=== PATIENT | female | born 1995 | race Caucasian/White ===

== ENCOUNTER 2017-02-10 17:02 | Emergency (ER) | payer SELFPAY ==
[~2017-02-10] VITALS: Ht 167.6 cm; Wt 81.6 kg
[~2017-02-10 17:02] MED LIST: CIPR500T94 PO
[2017-02-10 17:31] LABS: BILIRUBIN,URINE NEGATIVE (NEG); GLUCOSE,URINE NEGATIVE (NEG); NITRITE,URINE NEGATIVE (NEG); PROTEIN,URINE NEGATIVE (NEG-TRACE)
[2017-02-10 17:41] LABS: BACTERIA,URINE FEW /HPF (0-FEW); SQUAMOUS EPITHELIAL CELL,UR MANY /LPF
[2017-02-10 18:00] LABS: BASO # 0.1 x10^3/uL (0.0-0.2); BASO % 1 % (0-3); EOS % 1 % (0-3); HEMATOCRIT 40.7 % (36.0-47.0); HEMOGLOBIN 13.8 g/dL (12.0-15.5); LYMPH # 2.4 x10^3/uL (1.0-4.8); LYMPH % 23 % (24-48); MEAN CORPUSCULAR HEMOGLOBIN 32 pg (25-35); MEAN CORPUSCULAR HGB CONC 34 g/dL (31-37); MEAN CORPUSCULAR VOLUME 93 fL (79-100); MONO % 8 % (0-9); NEUT % 67 % (31-73); PLATELET COUNT 248 x10^3/uL (140-400); RED BLOOD COUNT 4.37 x10^6/uL (3.50-5.40); RED CELL DISTRIBUTION WIDTH 12.8 % (11.5-14.5); WHITE BLOOD COUNT 10.2 x10^3/uL (4.0-11.0)
[2017-02-10 18:09] LABS: CALCIUM 8.7 mg/dL (8.5-10.1); CREATININE 0.7 mg/dL (0.6-1.0); GFR 103.7; POTASSIUM 3.9 mmol/L (3.5-5.1)
[2017-02-10 18:15] LABS: ALBUMIN 3.8 g/dL (3.4-5.0); DIRECT BILIRUBIN 0.1 mg/dL (0.0-0.2); TOTAL BILIRUBIN 0.5 mg/dL (0.2-1.0); TOTAL PROTEIN 7.5 g/dL (6.4-8.2)
--- NOTE | 2017-02-10 18:17 | RAD ---
Obstetric pelvis ultrasound 02/10/2017 INDICATION: Vaginal bleeding. COMPARISON: None available TECHNIQUE: Multiple sonographic images of the pelvis were obtained utilizing transabdominal and transvaginal imaging. Grayscale, color Doppler and spectral waveform analysis were utilized. FINDINGS: The uterus measures 8.0 x 5.0 x 4.0 cm. Endometrium is within normal limits. No gestational sac is identified within the uterus. There is a cystic area eccentrically located within the cervix. There is a thin circular hyperechoic area centrally within this cystic area suggestive of a yolk sac. Consideration may be given for a cervical ectopic versus a nabothian cyst. Correlation with any prior pelvic ultrasounds may be of benefit if available. No heart tones are identified. There is no free fluid within the pelvis. The right ovary measures 3.0 x 1.8 x 2.1 cm. Left ovary measures 3.4 x 1.9 x 2.2 cm and is within normal limits. Arterial and venous waveform are identified in the ovaries at the time of imaging. IMPRESSION: And intrauterine gestation is not visualized. Recommend correlation with beta-hCG. There is however a cystic area within the cervix with suggestion of a yolk sac, concerning for a cervical ectopic . Alternate considerations would include a nabothian cyst complicated by thin septation. Serial beta hCG and follow-up pelvic ultrasound is recommended. Critical results were discussed with Dr. Godwin at 6:10 PM on 02/10/2017. Electronically signed by: Mickie Mendez MD (02/10/2017 6:14 PM) [facility]
[2017-02-10 19:13] VITALS: BP 123/61
--- NOTE | 2017-02-10 19:14 | PHYS DOC ---
Past Medical History Past Medical History: Other Additional Past Medical Histor: SPONTANEOUS AB Past Surgical History: Other Additional Past Surgical Histo: LEFT FALLOPIAN TUBE Alcohol Use: Occasionally Drug Use: Marijuana Adult General Chief Complaint Chief Complaint: VAGINAL BLEEDING HPI HPI 21-year-old female presenting to the emergency department approximately 6 or 7 weeks by last menstrual period. She presents with vaginal bleeding and . She denies any abdominal pain. She reports mild cramping intermittently which is now soft. She denies having an ultrasound prior to being evaluated today. He has a history of being Rh+ recorded in our EMR. She of note has a history of ectopic . ROS is negative for chest pain shortness of breath fevers or chills. All other review of systems is negative unless otherwise noted in history of present illness. ED course: 21-year-old female presenting to the emergency department today about 6 or 7 weeks by last menstrual period. On arrival she is afebrile with a normal heart rate. Normal vital signs. She is well-appearing. Ultrasound obtained which showed a cyst versus cervical ectopic . Beta hCG quantitative at 10. I discussed the case with Dr. Ching our personnel associate on -call who does not believe that the patient has a cervical ectopic because of how low the quantitative hCG is. I discussed this with the patient. I offered admission to the hospital for monitoring which the patient declines. Dr. Ching recommends repeat hCG tomorrow or Wednesday. He stated he would try to get the patient into clinic within a 2 days. I communicated to the patient that she will need to return to the emergency department if she is unable to get into clinic for repeat hCG testing and potentially repeat ultrasound. The patient was then discharged home in stable condition to follow up with their primary care physician over the next 2-3 days. They were to return if their symptoms worsened or if they were concerned for any reason. [id number] discharge instructions and return precautions were given. Patient's questions were answered to their satisfaction. Patient is comfortable plan. Review of Systems Review of Systems SEE ABOVE. Allergies Allergies Allergies Coded Allergies Type Severity Reaction Last Updated Verified No Known Drug Allergies 10/04/13 No Physical Exam Physical Exam SEE ABOVE Constitutional: Well developed, well nourished, no acute distress, non-toxic appearance. HENT: Normocephalic, atraumatic, bilateral external ears normal, oropharynx moist, no oral exudates, nose normal. [] Eyes: PERRLA, EOMI, conjunctiva normal, no discharge. [] Neck: Normal range of motion, no tenderness, supple, no stridor. Cardiovascular:Heart rate regular rhythm, no murmur [] Lungs & Thorax: Bilateral breath sounds clear to auscultation [] Abdomen: Bowel sounds normal, soft, no tenderness, no masses, no pulsatile masses. Skin: Warm, dry, no erythema, no rash. [] Back: No tenderness, no CVA tenderness. [] Extremities: No tenderness, no cyanosis, no clubbing, ROM intact, no edema. [] Neurologic: Alert and oriented X 3, normal motor function, normal sensory function, no focal deficits noted. [] Psychologic: Affect normal, judgement normal, mood normal. [] Current Patient Data Vital Signs Vital Signs Date Time Temp Pulse Resp B/P (MAP) Pulse Ox O2 Delivery O2 Flow Rate FiO2 02/10/17 17:05 98.2 93 16 114/70 (85) 96 Room Air 98.2 Lab Values Laboratory Tests Test 02/10/17 17:10 02/10/17 17:20 02/10/17 17:53 Urine Collection Type Unknown Urine Color Yellow Urine Clarity Clear Urine pH 6.0 Urine Specific [place] >=1.030 Urine Protein Negative mg/dL (NEG-TRACE) Urine Glucose (UA) Negative mg/dL (NEG) Urine Ketones (Stick) Negative mg/dL (NEG) Urine Blood Large (NEG) Urine Nitrite Negative (NEG) Urine Bilirubin Negative (NEG) Urine Urobilinogen Dipstick 1.0 mg/dL (0.2 mg/dL) Urine Leukocyte Esterase Small (NEG) Urine RBC 11-20 /HPF (0-2) Urine WBC 5-10 /HPF (0-4) Urine Squamous Epithelial Cells Many /LPF Urine Bacteria Few /HPF (0-FEW) Urine Mucus Marked /LPF POC Urine HCG, Qualitative Borderline hcg level White Blood Count 10.2 x10^3/uL (4.0-11.0) Red Blood Count 4.37 x10^6/uL (3.50-5.40) Hemoglobin 13.8 g/dL (12.0-15.5) Hematocrit 40.7 % (36.0-47.0) Mean Corpuscular Volume 93 fL (79-100) Mean Corpuscular Hemoglobin 32 pg (25-35) Mean Corpuscular Hemoglobin Concent 34 g/dL (31-37) Red Cell Distribution Width 12.8 % (11.5-14.5) Platelet Count 248 x10^3/uL (140-400) Neutrophils (%) (Auto) 67 % (31-73) Lymphocytes (%) (Auto) 23 % (24-48) L Monocytes (%) (Auto) 8 % (0-9) Eosinophils (%) (Auto) 1 % (0-3) Basophils (%) (Auto) 1 % (0-3) Neutrophils # (Auto) 6.8 x10^3uL (1.8-7.7) Lymphocytes # (Auto) 2.4 x10^3/uL (1.0-4.8) Monocytes # (Auto) 0.8 x10^3/uL (0.0-1.1) Eosinophils # (Auto) 0.1 x10^3/uL (0.0-0.7) Basophils # (Auto) 0.1 x10^3/uL (0.0-0.2) Maternal Serum HCG Beta Subunit 10 mIU/mL (0-5) H Sodium Level 142 mmol/L (136-145) Potassium Level 3.9 mmol/L (3.5-5.1) Chloride Level 105 mmol/L (98-107) Carbon Dioxide Level 26 mmol/L (21-32) Anion Gap 11 (6-14) Blood Urea Nitrogen 10 mg/dL (7-20) Creatinine 0.7 mg/dL (0.6-1.0) Estimated GFR (Cockcroft-Gault) 103.7 Glucose Level 83 mg/dL (70-99) Calcium Level 8.7 mg/dL (8.5-10.1) Total Bilirubin 0.5 mg/dL (0.2-1.0) Direct Bilirubin 0.1 mg/dL (0.0-0.2) Aspartate Amino Transferase (AST) 31 U/L (15-37) Alanine Aminotransferase (ALT) 50 U/L (14-59) Alkaline Phosphatase 57 U/L (46-116) Total Protein 7.5 g/dL (6.4-8.2) Albumin 3.8 g/dL (3.4-5.0) Lipase 117 U/L (73-393) Laboratory Tests 02/10/17 17:53 Laboratory Tests 02/10/17 17:53 EKG EKG [] Radiology/Procedures Radiology/Procedures [] Course & Med Decision Making Course & Med Decision Making Pertinent Labs and Imaging studies reviewed. (See chart for details) [] Dragon Disclaimer Dragon Disclaimer This electronic medical record was generated, in whole or in part, using a voice recognition dictation system. Departure Departure Impression: Primary Impression: Vaginal bleeding in Disposition: 01 HOME, SELF-CARE Condition: STABLE Referrals: SAMARIA SHARMA (PCP) Patient Instructions: Vaginal Bleeding During , [id number] Additional Instructions: Thank you for allowing us to participate in your care today. Follow up with Dr. Ching tomorrow or the next day. If you are unable to get in , return to the emergency department in 1-2 days for repeat testing and evaluation. This should be evaluated by the primary care physician and any necessary consulting services for continued management within a few days after discharge. Return to emergency room if you have any new or concerning symptoms including but not limited to fever, chills, nausea, vomiting, intractable pain, any new rashes, chest pain, shortness of air, uncontrolled bleeding, difficulty breathing, and/or vision loss. ARABELLA FLORES MD Feb 10, 2017 19:14
== END 2017-02-10 19:49 | disposition home or self-care (01) ==
LOC: ER 17:02
DX: O20.9 Hemorrhage in early pregnancy, unspecified (principal); O99.321 Drug use complicating pregnancy, first trimester; F12.10 Cannabis abuse, uncomplicated; Z3A.01 Less than 8 weeks gestation of pregnancy
CPT/HCPCS: 36415; 76801; 76817; 80048; 80076; 81001; 81025; 83690; 84702; 85025; 87086; 99285-25